=== PATIENT | female | born 1960 | race Two or more races ===

== ENCOUNTER 2018-03-02 14:48 | Emergency (ER) | payer MEDICAID, MEDICARE ==
[~2018-03-02] VITALS: Ht 160 cm; Wt 55.8 kg
[2018-03-02 14:51] VITALS: BP 115/68
--- NOTE | 2018-03-02 14:55 | NUR ---
57 Y/O M W/ C/O 06/24 CP STARTED 3 DAYS AGO WITH ABDOMINAL PAIN 11/24. CP RADIATES TO L ARM. DENIES NVD, JAW PAIN SOB OR DIZZINESS. PT IS ALERT AND ORIENTED [facility] 15. SKIN IS PINK/WARM/DRY; AAOX4, PERRL, WITH EVEN AND STEADY GAIT; LUNGS CLEAR BL, BREATHING UNLABORED; HR EVEN AND REGULAR, BL PERIPHERAL PULSES PRESENT; BS ACTIVE X4. PT DENIES ANY FEVER, SOB, OR COUGH AT THIS TIME;VSS; PATIENT POSITIONED FOR COMFORT; HOB ELEVATED; BEDRAILS UP X2; BED DOWN. HX---CIRROHISIS, HEP C MEDS--LACTULOSE, FUROSEMIDE, SPIRNOLACTONE, MAGNESIUM
--- NOTE | 2018-03-02 15:03 | NUR ---
PATIENT TO BED #11 WITH TRIAGE NURSE
[2018-03-02] MEDS ORDERED: NACL 0.9% 1,000 ML IV ONE (15:37)
[2018-03-02] MEDS ORDERED: DICYCLOMINE HCL LIQUID 10 MG/5 ML UDC PO ONE (15:40)
[2018-03-02] MEDS ORDERED: ONDANSETRON 4 MG/2 ML VIAL IVP ONE (15:40)
--- NOTE | 2018-03-02 15:43 | NUR ---
C/O EPIGASTRIC PAIN NON RADIATING AT THIS TIME, DENIES N/V/D ADDS PAIN HAS WORSEN OVER LAST 3 DAYS---INSTRUCTED TO CHANGE INTO HOSPITAL G[facility] AND PROVIDE URINE SAMPLE--- PT WILL GO TO RADIOLOGY
--- NOTE | 2018-03-02 15:58 | NUR ---
RETURNED FROM CT AND ULTRASOUND AT BEDSIDE
[2018-03-02 16:17] LABS: BASOPHILS % (AUTO) 0.4 % (0.0-2.0); EOSINOPHILS # (AUTO) 0.1 K/uL (0-0.4); EOSINOPHILS % (AUTO) 2.1 % (0.0-4.0); HEMATOCRIT 40.4 % (36-48); HEMOGLOBIN 13.5 g/dL (12.0-16.0); LYMPHOCYTES # (AUTO) 0.7 K/uL (2.5-16.5); LYMPHOCYTES % (AUTO) 14.2 % (20.5-51.1); MEAN CORPUSCULAR HEMOGLOBIN 31 pg (27-31); MEAN CORPUSCULAR HGB CONC 34 g/dL (33-37); MEAN CORPUSCULAR VOLUME 93.2 fL (80-94); MONOCYTES # (AUTO) 0.4 K/uL (0.8-1.0); MONOCYTES % (AUTO) 8.3 % (1.7-9.3); NEUTROPHILS # (AUTO) 3.7 K/uL (1.8-7.7); PLATELET COUNT (AUTO) 80 K/uL (140-450); RED BLOOD CELL COUNT(AUTO) 4.33 MIL/uL (4.20-5.40); RED CELL DISTRIBUTION WIDTH 12.9 % (11.6-13.7); WHITE BLOOD COUNT (AUTO) 4.9 K/uL (4.8-10.8)
[2018-03-02 16:18] LABS: APPEARANCE,URINE CLEAR (CLEAR); BILIRUBIN,URINE NEGATIVE (NEGATIVE); BLOOD, URINE NEGATIVE (NEGATIVE); COLOR,URINE YELLOW (YELLOW); LEUKOCYTE ESTERASE ,URINE NEGATIVE (NEGATIVE); NITRITE, URINE NEGATIVE (NEGATIVE); UGLUCOSE NEGATIVE (NEGATIVE)
--- NOTE | 2018-03-02 16:29 | NUR ---
BEDSIDE ULTRASOUND COMPLETED
[2018-03-02 16:48] LABS: ANION GAP 13.4 (8-16); CARBON DIOXIDE 25.8 mmol/L (21-32); CREATININE 1.3 mg/dL (0.6-1.3); POTASSIUM 3.2 mmol/L (3.5-5.1)
--- NOTE | 2018-03-02 16:51 | NUR ---
ADMITS EPIGASTRIC PAIN DECREASED AT THIS TIME DENIES N/V CONTINUES TO WAIT FOR DISPO---
[2018-03-02 16:54] LABS: ALBUMIN 3.4 g/dL (3.4-5.0); TOTAL BILIRUBIN 0.7 mg/dL (0.0-1.0)
--- NOTE | 2018-03-02 17:40 | NUR ---
TO AND FROM RESTROOM WITH STEADY GAIT---PT ADMITS EPIGASTRIC PAIN BELOW TOLERABLE LEVEL 06/24 AT THIS TIME AWAITS FOR DISPO
[2018-03-02 18:09] VITALS: BP 108/58
--- NOTE | 2018-03-02 18:09 | NUR ---
Patient discharged with v/s stable. Written and verbal after care instructions given and explained. Patient alert, oriented and verbalized understanding of instructions. Ambulatory with steady gait. All questions addressed prior to discharge. ID band removed. Patient advised to follow up with PMD. Rx of NEXIUM/ TRAMADOL given. Patient educated on indication of medication including possible reaction and side effects. Opportunity to ask questions provided and answered.
== END 2018-03-02 18:09 | disposition home or self-care (01) ==
LOC: MED 14:48
DX: K80.50 Calculus of bile duct without cholangitis or cholecystitis without obstruction (principal); K74.60 Unspecified cirrhosis of liver
CPT/HCPCS: 36415; 74176; 76705; 80053; 81003; 82150; 83690; 85025; 93005; 96374; 99284; J2405; J7030; Q0092

== ENCOUNTER 2018-06-11 09:39 | Emergency (ER) | payer MEDICAID ==
[~2018-06-11] VITALS: Ht 160 cm; Wt 53.5 kg
[2018-06-11 09:57] VITALS: BP 102/66
--- NOTE | 2018-06-11 10:00 | NUR ---
57Y/F BIB SELF WITH C/O RIGHT 2 ND TOE PAIN, - SWOLLEN, + BRUISED, + ROM, < 3 CAP REFILL, 10/10 THROBBING PAIN, PT STATED SHE WALKED INTO HER A CORNER OF THE COUCH ONE MONTH AGO. ALSO C/O TOE MY BE BROKEN AND LOWER BACK PAIN. PT IS AAOX4, VSS, BED LOW LOCKED, BEDRAIL UP X 1, ER MD AWARE AND NOTIFIED OF PT STATUS.
--- NOTE | 2018-06-11 10:05 | NUR ---
pt taken to x-ray
--- NOTE | 2018-06-11 10:10 | NUR ---
pt back from x-ray
--- NOTE | 2018-06-11 10:19 | NUR ---
Patient being evaluated by dr. fulton at bedside.
--- NOTE | 2018-06-11 10:30 | NUR ---
lab at bedside
[2018-06-11 10:43] LABS: APPEARANCE,URINE CLEAR (CLEAR); BILIRUBIN,URINE NEGATIVE (NEGATIVE); BLOOD, URINE NEGATIVE (NEGATIVE); COLOR,URINE YELLOW (YELLOW); LEUKOCYTE ESTERASE ,URINE NEGATIVE (NEGATIVE); NITRITE, URINE NEGATIVE (NEGATIVE); UGLUCOSE NEGATIVE (NEGATIVE)
[2018-06-11 10:43] LABS: BASOPHILS % (AUTO) 0.6 % (0.0-2.0); EOSINOPHILS # (AUTO) 0.1 K/uL (0-0.4); EOSINOPHILS % (AUTO) 2.2 % (0.0-4.0); HEMATOCRIT 41.7 % (36-48); LYMPHOCYTES # (AUTO) 0.9 K/uL (2.5-16.5); LYMPHOCYTES % (AUTO) 20.9 % (20.5-51.1); MEAN CORPUSCULAR HEMOGLOBIN 31 pg (27-31); MEAN CORPUSCULAR HGB CONC 34 g/dL (33-37); MEAN CORPUSCULAR VOLUME 91.9 fL (80-94); MONOCYTES # (AUTO) 0.5 K/uL (0.8-1.0); MONOCYTES % (AUTO) 10.8 % (1.7-9.3); NEUTROPHILS # (AUTO) 2.7 K/uL (1.8-7.7); NEUTROPHILS % (AUTO) 65.5 % (42.2-75.2); PLATELET COUNT (AUTO) 81 K/uL (140-450); RED BLOOD CELL COUNT(AUTO) 4.53 MIL/uL (4.20-5.40); RED CELL DISTRIBUTION WIDTH 13.7 % (11.6-13.7); WHITE BLOOD COUNT (AUTO) 4.2 K/uL (4.8-10.8)
[2018-06-11 10:53] LABS: ANION GAP 12.6 (8-16); CARBON DIOXIDE 26.3 mmol/L (21-32); CREATININE 0.8 mg/dL (0.6-1.3); POTASSIUM 3.9 mmol/L (3.5-5.1)
[2018-06-11 10:58] LABS: ALBUMIN 3.4 g/dL (3.4-5.0); TOTAL BILIRUBIN 0.8 mg/dL (0.0-1.0)
[2018-06-11 11:30] VITALS: BP 105/67
--- NOTE | 2018-06-11 11:30 | NUR ---
Patient discharged with v/s stable. Written and verbal after care instructions given and explained. Patient verbalized understanding. Ambulatory with steady gait. All questions addressed prior to discharge. Advised to follow up with PMD.
== END 2018-06-11 11:30 | disposition home or self-care (01) ==
LOC: MED 09:39
DX: S92.511A Displaced fracture of proximal phalanx of right lesser toe(s), initial encounter for closed fracture (principal); Z88.8 Allergy status to other drugs, medicaments and biological substances; W22.8XXA Striking against or struck by other objects, initial encounter; Y93.89 Activity, other specified; Y92.89 Other specified places as the place of occurrence of the external cause; Y99.8 Other external cause status
CPT/HCPCS: 36415; 73660; 80053; 81003; 85025; 99284; Q0092

== ENCOUNTER 2018-09-03 13:45 | Emergency (ER) | payer MEDICAID ==
[~2018-09-03] VITALS: Ht 160 cm; Wt 53.5 kg
--- NOTE | 2018-09-03 13:48 | NUR ---
PT TO ER BED 09
[2018-09-03 13:54] VITALS: BP 123/78
--- NOTE | 2018-09-03 13:55 | NUR ---
PT STATES SHE FELL ONTO HER BACK 2 WEEKS AGO WHEN SHE WAS PUTTING UP DECORATIONS, PT C/O INCREASING BACK PAIN NOW GOING INTO HER NECK. PT IS AMBULATORY WITH WALKER. PT HAS WALKING BOOT ON HER RT FOOT FROM PRIOR INJURY. PT ALSO C/O PAIN TO RT TOE. PAIN AT BACKA ND RT 2ND TOE 11/24. TO SEE THE PT. PMH LIVER CIRRHOSIS
--- NOTE | 2018-09-03 14:26 | NUR ---
XRAY AT BEDSIDE
--- NOTE | 2018-09-03 15:22 | NUR ---
PT SITTING COMFORTABLY IN HER BED. NO DISTRES NOTED. LISTENING MUSIC. MADE AWARE OF PT PAIN LEVEL. PT DENIES IBUPROFEN. HAS BP 98/67. WILL CONTINUE TO [facility] PT.
[2018-09-03 15:51] VITALS: BP 98/67
--- NOTE | 2018-09-03 15:52 | NUR ---
Patient discharged with v/s stable. Written and verbal after care instructions given and explained. Patient alert, oriented and verbalized understanding of instructions. Ambulatory with steady gait. All questions addressed prior to discharge. ID band removed. Patient advised to follow up with PMD. Rx of FLEXERIL AND NORCO given. Patient educated on indication of medication including possible reaction and side effects. Opportunity to ask questions provided and answered.
== END 2018-09-03 15:52 | disposition home or self-care (01) ==
LOC: MED 13:45
DX: S39.012A Strain of muscle, fascia and tendon of lower back, initial encounter (principal); M79.671 Pain in right foot; W19.XXXA Unspecified fall, initial encounter; Y93.89 Activity, other specified; Y92.89 Other specified places as the place of occurrence of the external cause; Y99.8 Other external cause status
CPT/HCPCS: 73630; 99283

== ENCOUNTER 2018-10-05 10:36 | Emergency (ER) | payer MEDICAID ==
[~2018-10-05] VITALS: Ht 160 cm; Wt 54.9 kg
[2018-10-05 10:48] VITALS: BP 100/71
--- NOTE | 2018-10-05 11:02 | NUR ---
PATIENT AMBULATED TO BED 7 AT THIS TIME.
[2018-10-05 11:09] VITALS: BP 103/73
--- NOTE | 2018-10-05 11:13 | NUR ---
PT WENT TO ACUPUNCTURE SINCE LAST FRIDAY, DID NOT DO ACUPUNCTURE ON BOTH RIGHT AND LEFT CALF BUT PT COMPLAINES PAIN TO THESE AREA.DENIES TINGLING. ABLE TO AMBULATE. PAIN 10/10; VSS; PATIENT POSITIONED FOR COMFORT; HOB ELEVATED; BEDRAILS UP X1; BED DOWN. ER MD MADE AWARE OF PT STATUS.
[2018-10-05] MEDS ORDERED: IBUPROFEN 400 MG TAB PO ONE (11:15)
--- NOTE | 2018-10-05 13:06 | NUR ---
PATIENT ELOPED FROM FACILITY. DISCHARGE INSTRUCTIONS NOT GIVEN TO PATIENT. DR. MARINA NOTIFIED. CALLED PT (TEL:[phone]) AT [phone] AND [phone] TWICE WITHOUT ANSWERING. MESSAGE LEFT TO PT.
== END 2018-10-05 13:06 | disposition home or self-care (01) ==
LOC: MED 10:36
DX: R25.2 Cramp and spasm (principal); Z90.49 Acquired absence of other specified parts of digestive tract; Z98.890 Other specified postprocedural states; Z88.8 Allergy status to other drugs, medicaments and biological substances
CPT/HCPCS: 93970; 99284; Q0092